=== PATIENT | female | born 1960 | race Native Hawaiian/Other Pacific Islander ===

== ENCOUNTER 2018-07-28 19:11 | Emergency (ER) | payer MEDICAID, OTHER ==
[~2018-07-28] VITALS: Ht 162.6 cm; Wt 64.4 kg
--- NOTE | 2018-07-28 20:09 | NUR ---
Patient discharged to home in stable conditon. Written and verbal after care instructions given. Patient verbalizes understanding of instructions.
== END 2018-07-28 20:10 | disposition home or self-care (01) ==
LOC: ER 19:14
DX: M54.6 Pain in thoracic spine (principal); W19.XXXA Unspecified fall, initial encounter; Y93.89 Activity, other specified; Y92.89 Other specified places as the place of occurrence of the external cause; Y99.8 Other external cause status
CPT/HCPCS: A4663